=== PATIENT | female | born 1970 | race Two or more races ===

== ENCOUNTER 2016-04-12 18:41 | Emergency (ER) | payer SELFPAY ==
[2016-04-12 19:16] VITALS: TEMP 98.4; BMI 28.9
[2016-04-12 19:45] LABS: MPV 9.1 fL (7.4-10.4)
[2016-04-12 19:50] LABS: LEUKOCYTES/URINE NEG (NEGATIVE); NITRITE/URINE NEG (NEGATIVE); URINE OCCULT BLOOD NEG (NEG/TRACE)
[2016-04-12 20:05] LABS: BLOOD UREA NITROGEN 10 MG/DL (7-17); CALCIUM 9.3 MG/DL (8.4-10.2); CALCULATED OSMOLALITY 274 MOs/Kg (270-290); CHLORIDE 108 mEq/L (98-107); GLUCOSE 93 mg/dL (70-99); SODIUM LEVEL 143 mEq/L (137-146); TOTAL PROTEIN 7.9 G/DL (6.3-8.2)
[2016-04-12 20:20] LABS: SEG NEUTROPHIL 46 % (45-76); TOTAL CELL COUNT 100
--- NOTE | 2016-04-12 21:38 | EDPRACDOC ---
<Maria M Benavides N - Last Filed: 04/12/16 22:46> - General Information Mode Of Arrival: Car - History of Present Illness Onset: 2 weeks Pain Location: Reports: Epigastric, RUQ Pain Context: Reports: Spontaneous Pain Severity: Severe Pain Quality: Reports: Sharp, Stabbing Pain Radiation: Reports: Chest Last Menstrual Period: 03/14/16 Control Method: Reports: None Adult Abdominal History: Reports: Similar Pain (dx) Modifying Factors: improves with: Food Female Associated Signs & Symptoms: Reports: Nausea, Vomiting, Chills. Denies: Frequency, Vaginal Bleeding, Hematemesis, Anorexia, Diarrhea, Melena, Dysuria, Fever, Urgency, Hematuria, Vaginal Discharge Oral Intake: Decreased Urinary Output: Normal <Reddy Pardo - Last Filed: 04/12/16 23:29> - General Information Chief Complaint: Abdominal Pain Stated Complaint: ABD PAIN Time Seen by Provider: 04/12/16 21:30 Home Medications: Home Medications Ferrous Sulfate [Iron] 325 mg PO DAILY 04/12/16 Ibuprofen Tablet [Motrin] 600 mg PO Q6H PRN 04/12/16 Oxycodone Immediate Release [Oxy-Ir] 5 mg PO Q6H PRN #20 tab 04/12/16 Promethazine [Phenergan] 25 mg PO Q6H PRN 04/12/16 Allergies/Adverse Reactions: Allergies Allergy/AdvReac Type Severity Reaction Status Date / Time Penicillins Allergy Anaphylaxis Verified 04/12/16 22:06 * - History of Present Illness HPI: PT REPORTS RUQ AND EPIGASTRIC ABD PAIN X 2 WEEKS, SEEN AT [facility] ED 10 DAYS AGO FOR SAME, DX WITH GALLSTONES AND UTERINE FIBROIDS. STATES WAS SUPPOSED TO HAVE SURGERY ON SUNDAY BUT WHEN SHE GOT TO THE HOSPITAL THEY DID NOT DO SURGERY, PT NOT SURE WHY THEY DID NOT DO SURGERY. PT STATES PAIN IS SHARP AND STABBING, WORSE WITH EATING/DRINKING, PAIN RADIATES TO HER CHEST AT TIMES, HAS HAD N/V TODAY. (Reddy Pardo) ED Past Medical History - History Reviewed Yes Nurses notes reviewed and agree except as marked No Past Medical History: Yes Patient has no past medical history - Patient Medical History Psychological History: Denies: Depression - Social Medical History Smoking Status: Never smoker ETOH: None Substance Abuse: None <Reddy Pardo - Last Filed: 04/12/16 23:29> EDM Review of Systems - Review of Systems Constitutional: Chills. negative: Fever Eyes: negative: Blurred Vision, Double Vision Ears: negative: Drainage Throat: negative: Pain Nose: negative: Congestion, Discharge Respiratory: negative: Cough, Shortness of Breath, Wheezing Cardiovascular: negative: Chest Pain, Palpitations Gastrointestinal: Nausea, Pain, Vomiting Genitourinary: negative: No Symptoms Reported, Dysuria, Frequency Neurological: negative: Dizziness, Headache, Numbness, Weakness Musculoskeletal: No Symptoms Reported Integumentary: No Symptoms Reported <Reddy Pardo - Last Filed: 04/12/16 23:29> - Physical Exam Constitutional: Alert (Awake), No apparent distress Oriented to: Time, Person, Place - HEENT Head: Normal ( normocephalic) Eye Exam: Normal (PERRL, EOMI, Sclera white) Oropharynx: Normal (Pharynx:Moist without exudate,Gums-no swelling) Tympanic Membrane: Normal ENT EAC: Normal TMJ: Normal Nose: No Symptoms Reported (septum midline) Neck: Normal (FROM, trachea at midline) - Respiratory/Cardiovascular Respiratory: Normal - CTA (BBS clear to auscultation without adventitious sounds ) Cardiovascular: Normal (RRR without murmur, gallop or rub) - GI Auscultation: Normal (NABS) Palpation: Normal (Soft,No rebound or guarding, non distended) Tenderness: Diffuse, Moderate. negative: Guarding, Rebound, Rigidity Ceballos's Sign: Positive - Musculoskeletal Back: Normal (Non-Tender) Extremities: Normal (Normal tone, Pulses 2+ No cyanosis or edema, FROM) - Integumentary Skin: Normal, Warm, Dry Lymphatics: Normal (no adenopathy) - Neurologic Memory Impaired: Normal Motor Function: Normal (Normal tone, Pulses 2+ No cyanosis or edema, FROM) Cranial Nerve: Normal (CN II-X11 intact sensation, strength 5/5) Cerebellar: Normal Mood Description: Normal Perception: Normal <Reddy Pardo - Last Filed: 04/12/16 23:29> - Physical Exam Last recorded Vital Signs: Last Vital Signs Temp 98.4 F 04/12/16 19:11 Pulse 82 04/12/16 22:28 Resp 20 04/12/16 22:28 BP 127/56 L 04/12/16 22:28 Pulse Ox 99 04/12/16 22:28 Oxygen Pulse Oxygen Saturation 99 O2 Device Room Air Oxygen Flow Rate Fraction of Inspired Oxygen ( FIO2) (Maria M Benavides) (Reddy Pardo) - Results 04/12/16 19:20 04/12/16 19:20 <Maria M Benavides - Last Filed: 04/12/16 22:46> - Differential Diagnosis Cholecystitis, Cholelithiasis, IBS, Pancreatitis, UTI - Re-evaluation Re-evaluation 1 Re-evaluation Time: 22:37 (CONT TO HAVE PAIN) - Results 04/12/16 19:20 04/12/16 19:20 - Diagnostic Imaging [facility]US Image interpreted by: Radiologist <Reddy Pardo - Last Filed: 04/12/16 23:29> - Results WBC 10.8 xk/uL (3.8-10.8) 04/12/16 19:20 RBC 4.51 xM/uL (4.20-5.40) 04/12/16 19:20 Hgb 8.2 g/dL (12.0-16.0) L 04/12/16 19:20 Hct 27.6 % (36-47) L 04/12/16 19:20 MCV 61 fL (81-99) L 04/12/16 19:20 MCH 18.2 pg (27-32) L 04/12/16 19:20 MCHC 29.8 g/dl (33-36) L 04/12/16 19:20 RDW 20.1 % (11.5-14.5) H 04/12/16 19:20 Plt Count 355 xk/uL (130-400) 04/12/16 19:20 MPV 9.1 fL (7.4-10.4) 04/12/16 19:20 Neut % (Auto) Cancelled 04/12/16 19:20 Lymph % (Auto) Cancelled 04/12/16 19:20 [place] % (Auto) Cancelled 04/12/16 19:20 Eos % (Auto) Cancelled 04/12/16 19:20 Baso % (Auto) Cancelled 04/12/16 19:20 Absolute Neuts (auto) Cancelled 04/12/16 19:20 Absolute Lymphs (auto) Cancelled 04/12/16 19:20 Seg Neuts % (Manual) 46 % (45-76) 04/12/16 19:20 Band Neutrophils % 0 % (0-5) 04/12/16 19:20 Lymphocytes % (Manual) 34 % (17-44) 04/12/16 19:20 Monocytes % (Manual) 6 % (0-10) 04/12/16 19:20 Eosinophils % (Manual) 13 % (0-5) H 04/12/16 19:20 Basophils % (Manual) 1 % (0-2) 04/12/16 19:20 Absolute Neutrophils 4.97 xk/uL (1.7-8.2) 04/12/16 19:20 Absolute Lymphocytes 3.67 xk/uL (0.65-4.75) 04/12/16 19:20 Platelet Estimate Norm (NORMAL) 04/12/16 19:20 RBC Morphology 2+ hypo 2+ micro 1+ poik 2+ aniso 1+ ellipto 1+ schisto 19:20 RBC Morphology 2+ hypo 2+ micro 1+ poik 2+ aniso 1+ ellipto 1+ schisto 19:20 RBC Morphology 2+ hypo 2+ micro 1+ poik 2+ aniso 1+ ellipto 1+ schisto 19:20 RBC Morphology 2+ hypo 2+ micro 1+ poik 2+ aniso 1+ ellipto 1+ schisto 19:20 RBC Morphology 2+ hypo 2+ micro 1+ poik 2+ aniso 1+ ellipto 1+ schisto 19:20 RBC Morphology 2+ hypo 2+ micro 1+ poik 2+ aniso 1+ ellipto 1+ schisto 19:20 Sodium 143 mEq/L (137-146) 04/12/16 19:20 Potassium 4.0 mEq/L (3.5-5.1) 04/12/16 19:20 Chloride 108 mEq/L (98-107) H 04/12/16 19:20 Carbon Dioxide 23 mMOL/L (22-33) 04/12/16 19:20 Anion Gap 16 mEq/L (8-16) 04/12/16 19:20 BUN 10 MG/DL (7-17) 04/12/16 19:20 Creatinine 0.70 MG/DL (0.52-1.04) 04/12/16 19:20 Estimated GFR (MDRD) > 60 mL/min (>=60) 04/12/16 19:20 Glucose 93 mg/dL (70-99) 04/12/16 19:20 Calculated Osmolality 274 MOs/Kg (270-290) 04/12/16 19:20 Calcium 9.3 MG/DL (8.4-10.2) 04/12/16 19:20 Total Bilirubin 0.3 MG/DL (0.2-1.3) 04/12/16 19:20 AST 27 IU/L (14-36) 04/12/16 19:20 ALT 36 IU/L (9-52) 04/12/16 19:20 Alkaline Phosphatase 70 IU/L (38-126) 04/12/16 19:20 Total Protein 7.9 G/DL (6.3-8.2) 04/12/16 19:20 Albumin 4.4 G/DL (3.5-5.0) 04/12/16 19:20 Lipase 89 U/L (23-300) 04/12/16 19:20 Urine Color Pale yellow 04/12/16 19:20 Urine Clarity Clear 04/12/16 19:20 Urine pH 5.0 (5.0-8.0) 04/12/16 19:20 Ur Specific [place] 1.005 (1.003-1.035) 04/12/16 19:20 Urine Protein Neg (NEG/TRACE) 04/12/16 19:20 Urine Glucose (UA) Neg (NEGATIVE) 04/12/16 19:20 Urine Ketones Neg (NEGATIVE) 04/12/16 19:20 Urine Occult Blood Neg (NEG/TRACE) 04/12/16 19:20 Urine Nitrite Neg (NEGATIVE) 04/12/16 19:20 Urine Bilirubin Neg (NEGATIVE) 04/12/16 19:20 Urine Urobilinogen <2.0 MG/DL (0-1) 04/12/16 19:20 Ur Leukocyte Esterase Neg (NEGATIVE) 04/12/16 19:20 Ur Epithelial Cells 1+ 04/12/16 19:20 Urine Bacteria Few (NEG/FEW) 04/12/16 19:20 Urine Test Neg (NEGATIVE) 04/12/16 19:20 Lab Results 04/12/16 04/12/16 04/12/16 19:20 19:20 19:20 WBC 10.8 RBC 4.51 Hgb 8.2 L Hct 27.6 L MCV 61 L MCH 18.2 L MCHC 29.8 L RDW 20.1 H Plt Count 355 MPV 9.1 Neut % (Auto) Cancelled Lymph % (Auto) Cancelled [place] % (Auto) Cancelled Eos % (Auto) Cancelled Baso % (Auto) Cancelled Absolute Neuts (auto) Cancelled Absolute Lymphs (auto) Cancelled Seg Neuts % (Manual) 46 Band Neutrophils % 0 Lymphocytes % (Manual) 34 Monocytes % (Manual) 6 Eosinophils % (Manual) 13 H Basophils % (Manual) 1 Absolute Neutrophils 4.97 Absolute Lymphocytes 3.67 Platelet Estimate Norm RBC Morphology 1+ schisto Sodium Potassium Chloride Carbon Dioxide Anion Gap BUN Creatinine Estimated GFR (MDRD) Glucose Calculated Osmolality Calcium Total Bilirubin AST ALT Alkaline Phosphatase Total Protein Albumin Lipase Urine Color Pale yellow Urine Clarity Clear Urine pH 5.0 Ur Specific [place] 1.005 Urine Protein Neg Urine Glucose (UA) Neg Urine Ketones Neg Urine Occult Blood Neg Urine Nitrite Neg Urine Bilirubin Neg Urine Urobilinogen <2.0 Ur Leukocyte Esterase Neg Ur Epithelial Cells 1+ Urine Bacteria Few Urine Test Neg 04/12/16 19:20 WBC RBC Hgb Hct MCV MCH MCHC RDW Plt Count MPV Neut % (Auto) Lymph % (Auto) [place] % (Auto) Eos % (Auto) Baso % (Auto) Absolute Neuts (auto) Absolute Lymphs (auto) Seg Neuts % (Manual) Band Neutrophils % Lymphocytes % (Manual) Monocytes % (Manual) Eosinophils % (Manual) Basophils % (Manual) Absolute Neutrophils Absolute Lymphocytes Platelet Estimate RBC Morphology Sodium 143 Potassium 4.0 Chloride 108 H Carbon Dioxide 23 Anion Gap 16 BUN 10 Creatinine 0.70 Estimated GFR (MDRD) > 60 Glucose 93 Calculated Osmolality 274 Calcium 9.3 Total Bilirubin 0.3 AST 27 ALT 36 Alkaline Phosphatase 70 Total Protein 7.9 Albumin 4.4 Lipase 89 Urine Color Urine Clarity Urine pH Ur Specific [place] Urine Protein Urine Glucose (UA) Urine Ketones Urine Occult Blood Urine Nitrite Urine Bilirubin Urine Urobilinogen Ur Leukocyte Esterase Ur Epithelial Cells Urine Bacteria Urine Test (Maria M Benavides) (Reddy Pardo) - Diagnostic Imaging [facility]US 04/12/16 22:37 US ABDOMEN LIMITED - RIGHT UPPER QUADRANT COMPARISON: None. FINDINGS: Gallbladder: No gallstones or wall thickening visualized. No sonographic Ceballos sign noted by professor of environmental studies. Common bile duct: Diameter: 2 mm Liver: No focal lesion identified. Within normal limits in parenchymal echogenicity. IMPRESSION: Unremarkable right upper quadrant ultrasound. (Reddy Pardo) - Additional Information PT D/C NOTES FROM [facility] ON VISIT 04/03/2016 SHOW HER REGISTERED [facility]ERNAL: PACS REVIEWED AND NOTE: RUQ US ESSEN NEG X ? LAYERING SMALL GALLSTONES CT A/P ESSEN NEG X LARGE UTERINE FIBROID. (Maria M Benavides) <Maria M Benavides - Last Filed: 04/12/16 22:46> Decision Time to Discharge: 23:26 - Departure Disposition: Home Education/Counseling Given To: Patient Education/Counseling Given Regarding: Diagnosis, Treatment, Prognosis, Follow Up <Reddy Pardo - Last Filed: 04/12/16 23:29> - Departure Condition: Stable Final Diagnosis: Abdominal pain Instructions: Acute Abdominal Pain (ED) Referrals: Nick Oakes MD [Staff Physician] - One Week Prescriptions: New Oxycodone Immediate Release [Oxy-Ir] 5 mg PO Q6H PRN #20 tab PRN Reason: Pain Continue Promethazine [Phenergan] 25 mg PO Q6H PRN PRN Reason: Nausea/Vomiting Ibuprofen Tablet [Motrin] 600 mg PO Q6H PRN PRN Reason: Pain Ferrous Sulfate [Iron] 325 mg PO DAILY Discontinued Tramadol HCl [Ultram] 50 mg PO Q8H PRN PRN Reason: Pain Additional Instructions: REST, DRINK PLENTY OF FLUIDS, FOLLOW UP WITH GYNECOLOGY FOR FURTHER EVALUATION, RETURN TO THE ED FOR ANY WORSENING SYMPTOMS OR CONCERNS.
[2016-04-12] MEDS ORDERED: SODIUM CHLORIDE 0.9% 10 ML FLUSH FLUSH PRN (21:39)
[2016-04-12] MEDS ORDERED: FENTANYL 100 MCG/2 ML VIAL IV ONE (21:39)
[2016-04-12] MEDS ORDERED: ONDANSETRON HCL 4 MG/2 ML VIAL IV ONE (21:39)
--- NOTE | 2016-04-12 22:27 | DIRPT ---
CLINICAL DATA: 46-year-old female with right upper quadrant abdominal pain EXAM: US ABDOMEN LIMITED - RIGHT UPPER QUADRANT COMPARISON: None. FINDINGS: Gallbladder: No gallstones or wall thickening visualized. No sonographic Ceballos sign noted by outside sales associate. Common bile duct: Diameter: 2 mm Liver: No focal lesion identified. Within normal limits in parenchymal echogenicity. IMPRESSION: Unremarkable right upper quadrant ultrasound. Electronically Signed By: Ji Milligan M.D. On: 04/12/2016 22:24
[2016-04-12] MEDS ORDERED: HYDROmorphone 1 MG INJECTION IV ONE (22:42)
[2016-04-12] MEDS ORDERED: OXYCODONE HCL 5 MG TABLET PO ONE (23:29)
[2016-04-12 23:54] VITALS: BP 121/60; PULSE 80
== END 2016-04-12 23:54 | disposition home or self-care (01) ==
LOC: ED 18:41
DX: R10.9 Unspecified abdominal pain (principal)
CPT/HCPCS: 36415; 76705; 80053; 81001; 81025; 83690; 85007; 85027; 96374; 96375; 99284; J1170; J2405; J3010; J3490